=== PATIENT | female | born 1945 | race Caucasian/White ===

== ENCOUNTER 2019-01-25 08:04 | Outpatient (CLI) | payer BC, MEDICARE | END 2019-01-25 08:05 | disposition home or self-care (01) | LOC: CARDIO 08:04 ==

== ENCOUNTER 2019-01-28 10:04 | Outpatient (CLI) | payer BC, MEDICARE | END 2019-01-28 10:05 | disposition home or self-care (01) | LOC: RAD 10:04 ==